=== PATIENT | male | born 1950 | race Caucasian/White ===

== ENCOUNTER 2017-10-20 10:36 | Observation (INO) | payer MEDICARE, MEDICAID ==
[2017-10-20] MEDS ORDERED: Sodium Chloride 0.9% 10 ML Syringe FLUSH PRN ×2 (11:33→18:19)
[2017-10-20] MEDS ORDERED: Ketorolac 30 MG/ML SDV IVPUSH ONE ×2 (11:35→11:36)
--- NOTE | 2017-10-20 11:41 | EDM.PDOCBH ---
ED HPI GENERAL MEDICAL PROBLEM - General Chief Complaint: Headache Stated Complaint: SEVERE HEADACHE Time Seen by Provider: 10/20/17 11:25 Source of Information: Reports: Provider History Limitations: Reports: Altered Mental Status - History of Present Illness INITIAL COMMENTS - FREE TEXT/NARRATIVE: Ha is a 66-year-old male, history schizophrenia, who presents to the emergency department today with his caregiver for evaluation of a headache. Patient planed of a headache upon waking today. His caregiver also noticed that his blood pressure was running low, typically runs around 110 systolic and today was as low as 89 systolic. Patient has been eating and drinking well per his caregiver. Patient does have issues with aspiration and has recently had a swallow study and she reports he frequent only coughs when he drinks any type of fluid. Patient has had no vomiting or diarrhea. Patient offers no other complaints. 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 Patient is unable to provide a significant history that is reliable. Per caregiver patient has not sustained any recent trauma. Onset: Today - Related Data Allergies Allergy/AdvReac Type Severity Reaction Status Date / Time Sulfa (Sulfonamide Allergy Cannot Verified 10/20/17 11:53 Antibiotics) Remember Home Meds: Home Meds Acetaminophen [Acetaminophen 8 Hour] 650 mg PO Q4H PRN 03/28/14 [History] Albuterol Sulfate 1 ampule IH Q4H PRN 03/28/14 [History] Aspirin [Halfprin] 81 mg PO QAM 03/28/14 [History] Atenolol 50 mg PO DAILY 03/28/14 [History] ClonazePAM [KlonoPIN] 1 mg PO QAM 03/28/14 [History] Dextrose [Glucose Gel] 15 g PO ASDIRECTED PRN 03/28/14 [History] Divalproex Sodium [Divalproex Sodium ER] 250 mg PO BID 03/28/14 [History] Divalproex Sodium [Divalproex Sodium ER] 500 mg PO BID 03/28/14 [History] Docusate Sodium/Sennosides [Senokot-S] 1 tab PO BID 03/28/14 [History] Furosemide [Lasix] 20 mg PO BID 03/28/14 [History] Glucagon,Human Recombinant [Glucagon Emergency Kit] 1 injection IM ASDIRECTED PRN 03/28/14 [History] Haloperidol 10 mg PO BID 03/28/14 [History] Haloperidol [Haldol] 5 mg PO Q6H PRN 03/28/14 [History] Ibuprofen 400 mg PO Q6H PRN 03/28/14 [History] Insulin NPH/Insulin Reg,Human [Novolin 70-30] 8 unit SQ QPM 03/28/14 [History] Insulin NPH/Insulin Reg,Human [Novolin 70-30] 16 unit SQ QAM 03/28/14 [History] Latanoprost [Xalatan 0.005% Ophth Soln] 1 drop EYEBOTH QPM 03/28/14 [History] Lisinopril 10 mg PO DAILY 03/28/14 [History] Mag Hydrox/Al Hydrox/Simeth [Maalox Maximum Strength Susp] 10 ml PO QID PRN [History] NIFEdipine [Procardia XL] 30 mg PO QAM 03/28/14 [History] QUEtiapine Fumarate [Quetiapine Fumarate] 800 mg PO QPM 03/28/14 [History] Simvastatin [Zocor] 5 mg PO BEDTIME 03/28/14 [History] diphenhydrAMINE HCl [Diphenhydramine HCl] 25 mg PO Q6H PRN 03/28/14 [History] metFORMIN HCl [Metformin HCl] 500 mg PO BID 03/28/14 [History] Clopidogrel Bisulfate [Clopidogrel] 1 tab PO DAILY 10/20/17 [History] Metoprolol Succinate [Toprol XL] 0.5 tab PO DAILY 10/20/17 [History] Past Medical History Neurological History: Reports: Headaches, Chronic, Neuropathy, Diabetic Endocrine/Metabolic History: Reports: Diabetes, Type II Social & Family History - Tobacco Use Smoking Status *Q: Never Smoker ED ROS GENERAL - Review of Systems Review Of Systems: ROS reveals no pertinent complaints other than HPI. ED EXAM, BEHAVIORAL HEALTH - Physical Exam Exam: See Below Exam Limited By: Other (Schizophrenia) General Appearance: Alert, WD/WN, No Apparent Distress Eye Exam: Bilateral Eye: EOMI, PERRL Ears: Normal External Exam, Normal TMs Nose: Normal Inspection Throat/Mouth: Normal Inspection, Normal Oropharynx Head: Atraumatic, Normocephalic Neck: Normal Inspection Respiratory/Chest: No Respiratory Distress, Rhonchi (Left lower lobe) Cardiovascular: Normal Peripheral Pulses, Regular Rate, Rhythm, No Murmur GI/Abdominal: Normal Bowel Sounds, Soft, Non-Tender Back Exam: Normal Inspection Extremities: Normal Inspection Neurological: Alert, Other (Patient has brace to right lower leg) Psychiatric: Alert, Flight of Ideas, Grandiose Thoughts Skin Exam: Warm, Dry, Intact COURSE, BEHAVIORAL HEALTH COMP - Course Vital Signs: Last Vital Signs Temp 35.1 C L 10/20/17 11:09 Pulse 88 10/20/17 11:09 Resp 16 10/20/17 11:09 BP 117/65 10/20/17 11:09 Pulse Ox 96 10/20/17 11:09 Ha is a 66-year-old male, history schizophrenia who presents to the emergency department today with his caregiver for concern of low blood pressure and patient complaint of headache since this morning. Please refer to history of present illness and focused exam. Patient does have rhonchi to left lower lobe on exam, concerns for aspiration pneumonia given his history. Given his low temperature here and low blood pressure reported this morning, I am concerned of possible sepsis. Patient is not tachycardic. At this time we'll give patient a liter of normal saline, 15 mg of Toradol for his headache that he is complaining of and obtain a CBC, comprehensive panel and lactic acid. I will also obtain a chest x-ray. Patient's x-ray is negative for any lobar pneumonia. CBC returns with a normal white count and normal neutrophil count. Patient's hemoglobin is stable at 11.1 , lymphocytes are low at 22. Comprehensive metabolic panel returns with a sodium of 125 consistent with hyponatremia. Chloride is mildly low at 89 and carbon dioxide is mildly elevated at 34. BUNs is also elevated at 31, creatinine is normal at 1.2 with GFR of greater than 60. Liver function tests are normal, lactic acid does return elevated at 3.2. It is likely patient's sodium is secondary to his Lasix. His diuretic in light of his elevated BUNs and low blood pressure today is probably causing dehydration and therefore an elevated lactic acid. Patient's blood pressure has been stable here, he has eaten lunch without difficulty. I'm going to rule out a urinary tract infection and recheck a lactic acid after his fluid bolus is completed. 1550-lactic acid returned elevated to 3.8. Patient's urine is negative for infection, patient denies any headache currently, he has no evidence of nuchal rigidity or meningismus symptoms. Patient thus far has had a liter and a half of normal saline. He has eaten lunch without difficulty and no complaints of heartburn. I will give patient a GI cocktail. I discussed his case with hospitalist, Dr. Rodriguez and who would like a CT scan of his head to rule out any acute intracranial findings. Patient and caregiver has been updated on plan of care and are agreeable. 1650-CT scan is negative for any acute abnormalities, we will admit patient, likely treat for possible aspiration pneumonia at this time and perhaps with further hydration a definitive infiltrate will be present on repeat x-ray. Caregiver was updated. Patient was admitted in stable condition. Orders, Labs, Meds: Active Orders 24 hr Category Date Time Status Peripheral IV Care [RC] . DIRECTED Care 10/20/17 11:33 Active Head wo Cont [CT] Stat Exams 10/20/17 15:39 Taken UA W/MICROSCOPIC [URIN] Stat Lab 10/20/17 13:10 Ordered Sodium Chloride 0.9% [Normal Saline] 1,000 ml Med 10/20/17 11:45 Active IV ASDIRECTED Sodium Chloride 0.9% [Normal Saline] 1,000 ml Med 10/20/17 13:15 Active IV ASDIRECTED Sodium Chloride 0.9% [Saline Flush] Med 10/20/17 11:33 Active 10 ml FLUSH ASDIRECTED PRN Peripheral IV Insertion Adult [OM.PC] Routine Oth 10/20/17 11:33 Ordered Medication Orders Sodium Chloride (Normal Saline) 1,000 mls @ 999 mls/hr IV ASDIRECTED ELKIN Last Admin: 10/20/17 12:17 Dose: 999 mls/hr Sodium Chloride (Normal Saline) 1,000 mls @ 500 mls/hr IV ASDIRECTED ELKIN Last Admin: 10/20/17 13:26 Dose: 500 mls/hr Sodium Chloride (Saline Flush) 10 ml FLUSH ASDIRECTED PRN PRN Reason: Keep Vein Open Last Admin: 10/20/17 12:16 Dose: 10 ml Laboratory Tests 10/20/17 10/20/17 10/20/17 Range/Units 11:42 11:42 11:42 WBC 6.8 (4.5-11.0) K/uL RBC 3.62 L (4.30-5.90) M/uL Hgb 11.1 L (12.0-15.0) g/dL Hct 32.9 L (40.0-54.0) % MCV 91 (80-98) fL MCH 31 (27-31) pg MCHC 34 (32-36) % Plt Count 202 (150-400) K/uL Neut % (Auto) 62 (36-66) % Lymph % (Auto) 22 L (24-44) % [place] % (Auto) 14 H (2-6) % Eos % (Auto) 3 (2-4) % Baso % (Auto) 0 (0-1) % Sodium 125 L (140-148) mmol/L Potassium 4.7 (3.6-5.2) mmol/L Chloride 89 L (100-108) mmol/L Carbon Dioxide 34 H (21-32) mmol/L Anion Gap 6.7 (5.0-14.0) mmol/L BUN 31 H (7-18) mg/dL Creatinine 1.2 (0.8-1.3) mg/dL Est Cr Clr Drug Dosing 54.88 mL/min Estimated GFR (MDRD) > 60 (>60) Glucose 156 H (74-106) mg/dL Lactic Acid 3.2 H (0.4-2.0) mmol/L Calcium 8.5 (8.5-10.1) mg/dL Total Bilirubin 0.3 (0.2-1.0) mg/dL AST 13 L (15-37) U/L ALT 12 (12-78) U/L Alkaline Phosphatase 66 (46-116) U/L Total Protein 6.4 (6.4-8.2) g/dL Albumin 2.5 L (3.4-5.0) g/dL Globulin 3.9 H (2.3-3.5) g/dL Albumin/Globulin Ratio 0.6 L (1.2-2.2) Urine Color Urine Appearance Urine pH (4.5-8.0) Ur Specific [place] (1.008-1.030) Urine Protein (NEGATIVE) mg/dL Urine Glucose (UA) (NEGATIVE) mg/dL Urine Ketones (NEGATIVE) mg/dL Urine Occult Blood (NEGATIVE) Urine Nitrite (NEGAITVE) Urine Bilirubin (NEGATIVE) Urine Urobilinogen (NORMAL) mg/dL Ur Leukocyte Esterase (NEGATIVE) Urine RBC (0-5) Urine WBC (0-5) Ur Epithelial Cells Amorphous Sediment Urine Bacteria Urine Mucus 10/20/17 10/20/17 Range/Units 13:10 14:15 WBC (4.5-11.0) K/uL RBC (4.30-5.90) M/uL Hgb (12.0-15.0) g/dL Hct (40.0-54.0) % MCV (80-98) fL MCH (27-31) pg MCHC (32-36) % Plt Count (150-400) K/uL Neut % (Auto) (36-66) % Lymph % (Auto) (24-44) % [place] % (Auto) (2-6) % Eos % (Auto) (2-4) % Baso % (Auto) (0-1) % Sodium (140-148) mmol/L Potassium (3.6-5.2) mmol/L Chloride (100-108) mmol/L Carbon Dioxide (21-32) mmol/L Anion Gap (5.0-14.0) mmol/L BUN (7-18) mg/dL Creatinine (0.8-1.3) mg/dL Est Cr Clr Drug Dosing mL/min Estimated GFR (MDRD) (>60) Glucose (74-106) mg/dL Lactic Acid 3.8 H (0.4-2.0) mmol/L Calcium (8.5-10.1) mg/dL Total Bilirubin (0.2-1.0) mg/dL AST (15-37) U/L ALT (12-78) U/L Alkaline Phosphatase (46-116) U/L Total Protein (6.4-8.2) g/dL Albumin (3.4-5.0) g/dL Globulin (2.3-3.5) g/dL Albumin/Globulin Ratio (1.2-2.2) Urine Color Yellow Urine Appearance Clear Urine pH 5.0 (4.5-8.0) Ur Specific [place] 1.015 (1.008-1.030) Urine Protein Negative (NEGATIVE) mg/dL Urine Glucose (UA) Normal (NEGATIVE) mg/dL Urine Ketones Negative (NEGATIVE) mg/dL Urine Occult Blood Negative (NEGATIVE) Urine Nitrite Negative (NEGAITVE) Urine Bilirubin Negative (NEGATIVE) Urine Urobilinogen 1 (NORMAL) mg/dL Ur Leukocyte Esterase Negative (NEGATIVE) Urine RBC Not seen (0-5) Urine WBC 0-5 (0-5) Ur Epithelial Cells Not seen Amorphous Sediment Rare Urine Bacteria Not seen Urine Mucus Not seen Medications Generic Name Dose Route Start Last Admin Trade Name Freq PRN Reason Stop Dose Admin Sodium Chloride 1,000 mls @ 999 mls/hr 10/20/17 11:45 10/20/17 12:17 Normal Saline IV 999 mls/hr ASDIRECTED ELKIN Administration Sodium Chloride 1,000 mls @ 500 mls/hr 10/20/17 13:15 10/20/17 13:26 Normal Saline IV 500 mls/hr ASDIRECTED ELKIN Administration Sodium Chloride 10 ml 10/20/17 11:33 10/20/17 12:16 Saline Flush FLUSH 10 ml ASDIRECTED PRN Administration Keep Vein Open Discontinued Medications Generic Name Dose Route Start Last Admin Trade Name Freq PRN Reason Stop Dose Admin Acetaminophen 1,000 mg 10/20/17 13:10 10/20/17 13:42 Tylenol Extra Strength PO 10/20/17 13:11 1,000 mg ONETIME ONE Administration Al Hydroxide/Mg Hydroxide 15 0 ml 10/20/17 15:44 10/20/17 16:15 ml/ Lidocaine HCl 15 ml PO 10/20/17 15:45 30 ml ONETIME ONE Administration Sodium Chloride 1,000 mls @ 999 mls/hr 10/20/17 13:00 Normal Saline IV ASDIRECTED [facility] Ketorolac Tromethamine 30 mg 10/20/17 11:35 10/20/17 12:18 Toradol IVPUSH 10/20/17 11:36 Not Given ONETIME ONE Ketorolac Tromethamine 15 mg 10/20/17 11:36 10/20/17 12:17 Toradol IVPUSH 10/20/17 11:37 15 mg ONETIME ONE Administration Departure - Departure Time of Disposition: 17:30 Disposition: Admitted As Inpatient 65 Condition: Good Clinical Impression: Elevated lactic acid level, Dehydration - Discharge Information Referrals: Renuka Young MD [Primary Care Provider] - Forms: ED Department Discharge - My Orders Last 24 Hours: My Active Orders 10/20/17 11:33 Peripheral IV Care [RC] . DIRECTED Sodium Chloride 0.9% [Saline Flush] 10 ml FLUSH ASDIRECTED PRN Peripheral IV Insertion Adult [OM.PC] Routine 10/20/17 11:45 Sodium Chloride 0.9% [Normal Saline] 1,000 ml IV ASDIRECTED 10/20/17 13:10 UA W/MICROSCOPIC [URIN] Stat 10/20/17 13:15 Sodium Chloride 0.9% [Normal Saline] 1,000 ml IV ASDIRECTED 10/20/17 15:39 Head wo Cont [CT] Stat - Assessment/Plan Last 24 Hours: My Active Orders 10/20/17 11:33 Peripheral IV Care [RC] . DIRECTED Sodium Chloride 0.9% [Saline Flush] 10 ml FLUSH ASDIRECTED PRN Peripheral IV Insertion Adult [OM.PC] Routine 10/20/17 11:45 Sodium Chloride 0.9% [Normal Saline] 1,000 ml IV ASDIRECTED 10/20/17 13:10 UA W/MICROSCOPIC [URIN] Stat 10/20/17 13:15 Sodium Chloride 0.9% [Normal Saline] 1,000 ml IV ASDIRECTED 10/20/17 15:39 Head wo Cont [CT] Stat
[2017-10-20] MEDS ORDERED: Sodium Chloride 0.9% 1,000 ML IV SCH ×3 (11:45→13:15)
--- NOTE | 2017-10-20 12:39 | CR ---
CHEST: 2 view CLINICAL HISTORY:Aspiration COMPARISON:2011 FINDINGS: There is less than optimal inspiration. The heart and pulmonary vascularity are normal. Th ere are atherosclerotic changes in the aorta. There is no infiltrate or effusion IMPRESSION: Less than optimal inspiration No acute cardiopulmonary process
[2017-10-20] MEDS ORDERED: Acetaminophen 500 MG Tab PO ONE (13:10)
[2017-10-20] MEDS ORDERED: Alum Hydrox/Mag Hydrox/Simeth 15 ML, Lidocaine 2% 15 ML PO ONE ×2 (15:44)
--- NOTE | 2017-10-20 17:21 | PCM.HP ---
H&P History of Present Illness - General Date of Service: 10/20/17 Admit Problem/Dx: Admission Diagnosis/Problem Admission Diagnosis/Problem Lactic acidosis Source of Information: Provider, RN Notes Reviewed History Limitations: Reports: Altered Mental Status (Dementia) - History of Present Illness Initial Comments - Free Text/Narative: This patient is a 66-year-old gentleman who is admitted to observation status for further evaluation of lactic acidosis. He has a history of chronic schizophrenia as well as underlying dementia and is unable to provide significant reliable information concerning recent symptoms or review of systems. Over the past few months is been noted to have difficulty with probable aspiration and is in the process of undergoing swallowing evaluation. This morning was found by nursing staff to be lethargic and hypotensive. He was brought into the emergency department for further evaluation. On assessment reported headache and also abdominal discomfort. Laboratory studies were obtained, white blood cell count is within normal range but he was found to have an elevated lactic acid level at 3.2. This was rechecked after he received a liter of fluid and actually gone up to 3.8. He is otherwise been hemodynamically stable and afebrile while in the emergency department. Examination is unremarkable, chest x-ray shows no obvious infiltrate, and urinalysis is clear. - Related Data Allergies/Adverse Reactions: Allergies Allergy/AdvReac Type Severity Reaction Status Date / Time Sulfa (Sulfonamide Allergy Cannot Verified 10/20/17 11:53 Antibiotics) Remember Home Medications: Home Meds Acetaminophen [Acetaminophen 8 Hour] 650 mg PO Q4H PRN 03/28/14 [History] Albuterol Sulfate 1 ampule IH Q4H PRN 03/28/14 [History] Aspirin [Halfprin] 81 mg PO QAM 03/28/14 [History] Atenolol 50 mg PO DAILY 03/28/14 [History] ClonazePAM [KlonoPIN] 1 mg PO QAM 03/28/14 [History] Dextrose [Glucose Gel] 15 g PO ASDIRECTED PRN 03/28/14 [History] Divalproex Sodium [Divalproex Sodium ER] 250 mg PO BID 03/28/14 [History] Divalproex Sodium [Divalproex Sodium ER] 500 mg PO BID 03/28/14 [History] Docusate Sodium/Sennosides [Senokot-S] 1 tab PO BID 03/28/14 [History] Furosemide [Lasix] 20 mg PO BID 03/28/14 [History] Glucagon,Human Recombinant [Glucagon Emergency Kit] 1 injection IM ASDIRECTED PRN 03/28/14 [History] Haloperidol 10 mg PO BID 03/28/14 [History] Haloperidol [Haldol] 5 mg PO Q6H PRN 03/28/14 [History] Ibuprofen 400 mg PO Q6H PRN 03/28/14 [History] Insulin NPH/Insulin Reg,Human [Novolin 70-30] 8 unit SQ QPM 03/28/14 [History] Insulin NPH/Insulin Reg,Human [Novolin 70-30] 16 unit SQ QAM 03/28/14 [History] Latanoprost [Xalatan 0.005% [facility] Soln] 1 drop EYEBOTH QPM 03/28/14 [History] Lisinopril 10 mg PO DAILY 03/28/14 [History] Mag Hydrox/Al Hydrox/Simeth [Maalox Maximum Strength Susp] 10 ml PO QID PRN [History] NIFEdipine [Procardia XL] 30 mg PO QAM 03/28/14 [History] QUEtiapine Fumarate [Quetiapine Fumarate] 800 mg PO QPM 03/28/14 [History] Simvastatin [Zocor] 5 mg PO BEDTIME 03/28/14 [History] diphenhydrAMINE HCl [Diphenhydramine HCl] 25 mg PO Q6H PRN 03/28/14 [History] metFORMIN HCl [Metformin HCl] 500 mg PO BID 03/28/14 [History] Clopidogrel Bisulfate [Clopidogrel] 1 tab PO DAILY 10/20/17 [History] Metoprolol Succinate [Toprol XL] 0.5 tab PO DAILY 10/20/17 [History] Past Medical History Neurological History: Reports: Headaches, Chronic, Neuropathy, Diabetic Endocrine/Metabolic History: Reports: Diabetes, Type II Social & Family History - Tobacco Use Smoking Status *Q: Never Smoker H&P Review of Systems - Review of Systems: Review Of Systems: Unable To Obtain General: Reports: ROS unobtainable (Dementia) Exam - Exam Exam: See Below - Vital Signs Vital Signs: Last Vital Signs Temp 95.1 F L 10/20/17 11:09 Pulse 87 10/20/17 17:05 Resp 16 10/20/17 17:05 BP 149/90 H 10/20/17 17:05 Pulse Ox 89 L 10/20/17 17:05 Weight: 175 lb - Exam Quality Assessment: DVT Prophylaxis General: Alert, Cooperative HEENT: Conjunctiva Clear, Hearing Intact, Mucosa Moist & [place], Normal Nasal Septum, Posterior Pharynx Clear, Pupils Equal Neck: Supple, Trachea Midline, +2 Carotid Pulse wo Bruit Lungs: Decreased Breath Sounds. No: Crackles, Rales, Rhonchi, Rub, Stridor Cardiovascular: Regular Rate, Regular Rhythm, Normal S1, Normal S2. No: Systolic Murmur, Diastolic Murmur GI/Abdominal Exam: Soft, Non-Tender, No Organomegaly, No Distention Back Exam: Normal Inspection, Full Range of Motion Extremities: Non-Tender, No Pedal Edema Skin: Warm, Dry, Intact Neurological: Cranial Nerves Intact, Strength Equal Bilateral, Normal Speech, Normal Tone, Sensation Intact. No: Focal Deficit Neuro Extensive - Mental Status: Alert, Disorientation to Place, Disorientation to Time, Memory Loss-Remote Events, Memory Loss-Recent Events. No: Normal Cognition, Memory Intact - Patient Data Lab Results Last 24 hrs: Laboratory Results - last 24 hr 10/20/17 10/20/17 10/20/17 Range/Units 11:42 11:42 11:42 WBC 6.8 (4.5-11.0) K/uL RBC 3.62 L (4.30-5.90) M/uL Hgb 11.1 L (12.0-15.0) g/dL Hct 32.9 L (40.0-54.0) % MCV 91 (80-98) fL MCH 31 (27-31) pg MCHC 34 (32-36) % Plt Count 202 (150-400) K/uL Neut % (Auto) 62 (36-66) % Lymph % (Auto) 22 L (24-44) % [place] % (Auto) 14 H (2-6) % Eos % (Auto) 3 (2-4) % Baso % (Auto) 0 (0-1) % Sodium 125 L (140-148) mmol/L Potassium 4.7 (3.6-5.2) mmol/L Chloride 89 L (100-108) mmol/L Carbon Dioxide 34 H (21-32) mmol/L Anion Gap 6.7 (5.0-14.0) mmol/L BUN 31 H (7-18) mg/dL Creatinine 1.2 (0.8-1.3) mg/dL Est Cr Clr Drug Dosing 54.88 mL/min Estimated GFR (MDRD) > 60 (>60) Glucose 156 H (74-106) mg/dL Lactic Acid 3.2 H (0.4-2.0) mmol/L Calcium 8.5 (8.5-10.1) mg/dL Total Bilirubin 0.3 (0.2-1.0) mg/dL AST 13 L (15-37) U/L ALT 12 (12-78) U/L Alkaline Phosphatase 66 (46-116) U/L Total Protein 6.4 (6.4-8.2) g/dL Albumin 2.5 L (3.4-5.0) g/dL Globulin 3.9 H (2.3-3.5) g/dL Albumin/Globulin Ratio 0.6 L (1.2-2.2) Urine Color Urine Appearance Urine pH (4.5-8.0) Ur Specific [place] (1.008-1.030) Urine Protein (NEGATIVE) mg/dL Urine Glucose (UA) (NEGATIVE) mg/dL Urine Ketones (NEGATIVE) mg/dL Urine Occult Blood (NEGATIVE) Urine Nitrite (NEGAITVE) Urine Bilirubin (NEGATIVE) Urine Urobilinogen (NORMAL) mg/dL Ur Leukocyte Esterase (NEGATIVE) Urine RBC (0-5) Urine WBC (0-5) Ur Epithelial Cells Amorphous Sediment Urine Bacteria Urine Mucus 10/20/17 10/20/17 Range/Units 13:10 14:15 WBC (4.5-11.0) K/uL RBC (4.30-5.90) M/uL Hgb (12.0-15.0) g/dL Hct (40.0-54.0) % MCV (80-98) fL MCH (27-31) pg MCHC (32-36) % Plt Count (150-400) K/uL Neut % (Auto) (36-66) % Lymph % (Auto) (24-44) % [place] % (Auto) (2-6) % Eos % (Auto) (2-4) % Baso % (Auto) (0-1) % Sodium (140-148) mmol/L Potassium (3.6-5.2) mmol/L Chloride (100-108) mmol/L Carbon Dioxide (21-32) mmol/L Anion Gap (5.0-14.0) mmol/L BUN (7-18) mg/dL Creatinine (0.8-1.3) mg/dL Est Cr Clr Drug Dosing mL/min Estimated GFR (MDRD) (>60) Glucose (74-106) mg/dL Lactic Acid 3.8 H (0.4-2.0) mmol/L Calcium (8.5-10.1) mg/dL Total Bilirubin (0.2-1.0) mg/dL AST (15-37) U/L ALT (12-78) U/L Alkaline Phosphatase (46-116) U/L Total Protein (6.4-8.2) g/dL Albumin (3.4-5.0) g/dL Globulin (2.3-3.5) g/dL Albumin/Globulin Ratio (1.2-2.2) Urine Color Yellow Urine Appearance Clear Urine pH 5.0 (4.5-8.0) Ur Specific [place] 1.015 (1.008-1.030) Urine Protein Negative (NEGATIVE) mg/dL Urine Glucose (UA) Normal (NEGATIVE) mg/dL Urine Ketones Negative (NEGATIVE) mg/dL Urine Occult Blood Negative (NEGATIVE) Urine Nitrite Negative (NEGAITVE) Urine Bilirubin Negative (NEGATIVE) Urine Urobilinogen 1 (NORMAL) mg/dL Ur Leukocyte Esterase Negative (NEGATIVE) Urine RBC Not seen (0-5) Urine WBC 0-5 (0-5) Ur Epithelial Cells Not seen Amorphous Sediment Rare Urine Bacteria Not seen Urine Mucus Not seen Result Diagrams: 10/20/17 11:42 10/20/17 11:42 *Q Meaningful Use (ADM) - VTE Risk Assess *Q Each Risk Factor Represents 1 Point: Obesity ( BMI > 25 kg/m2) Total Score 1 Point Risk Factors: 1 Each Risk Factor Represents 2 Points: Age 60 - 74 Years Total Score 2 Point Risk Factors: 2 Each Risk Factor Represents 3 Points: None Total Score 3 Point Risk Factors: 0 Each Risk Factor Represents 5 Points: None Total Score 5 Point Risk Factors: 0 Venous Thromboembolism Risk Factor Score *Q: 3 Problem List Initiated/Reviewed/Updated: Yes Orders Last 24hrs: Active Orders 24 hr Category Date Time Status Patient Status Manage Transfer [TRANSFER] Routine ADT 10/20/17 16:59 Ordered Peripheral IV Care [RC] . DIRECTED Care 10/20/17 11:33 Active Head wo Cont [CT] Stat Exams 10/20/17 15:39 Taken UA W/MICROSCOPIC [URIN] Stat Lab 10/20/17 13:10 Ordered Sodium Chloride 0.9% [Normal Saline] 1,000 ml Med 10/20/17 11:45 Active IV ASDIRECTED Sodium Chloride 0.9% [Normal Saline] 1,000 ml Med 10/20/17 13:15 Active IV ASDIRECTED Sodium Chloride 0.9% [Saline Flush] Med 10/20/17 11:33 Active 10 ml FLUSH ASDIRECTED PRN Peripheral IV Insertion Adult [OM.PC] Routine Oth 10/20/17 11:33 Ordered Resuscitation Status Routine Resus Stat 10/20/17 17:04 Ordered Medication Orders Sodium Chloride (Normal Saline) 1,000 mls @ 999 mls/hr IV ASDIRECTED ELKIN Last Admin: 10/20/17 12:17 Dose: 999 mls/hr Sodium Chloride (Normal Saline) 1,000 mls @ 500 mls/hr IV ASDIRECTED ELKIN Last Admin: 10/20/17 13:26 Dose: 500 mls/hr Sodium Chloride (Saline Flush) 10 ml FLUSH ASDIRECTED PRN PRN Reason: Keep Vein Open Last Admin: 10/20/17 12:16 Dose: 10 ml Assessment/Plan Comment:: ASSESSMENT AND PLAN LACTIC ACIDOSIS-likely secondary to dehydration and possible aspiration this morning. White blood cell count is normal and there is no evidence of significant infiltrate on chest x-ray. -IV fluids for hydration -Repeat lactic acid later tonight and again in a.m. -Hold metformin POSSIBLE ASPIRATION -Repeat chest x-ray in a.m. after hydration -Supplemental oxygen as needed -Nebulized albuterol as needed -Blood cultures -Unasyn 1.5 g IV every 6 hours, plan to discontinue in a.m. if no evidence of pulmonary infection identified CHRONIC SCHIZOPHRENIA-with underlying dementia -Continue outpatient medical regimen MAINTENANCE ISSUES -DVT prophylaxis; Lovenox 40 mg subcutaneous daily -GI prophylaxis; not indicated -Cartagena catheter; not indicated -Nutrition; pured diet, nectar thickened liquids -Nicotine dependence; not required CODE STATUS-DNR/DNI ADMISSION STATUS-this patient will be admitted to observation status, expect no more than a one night hospital stay for evaluation and management of problems as outlined above. DISPOSITION-anticipate discharge to home after the hospital stay. PRIMARY CARE PROVIDER-Dr. Young
[2017-10-20] MEDS ORDERED: Glucose Gel 15 GM in 37.5 GM Tube PO PRN (18:19)
[2017-10-20] MEDS ORDERED: Ondansetron 4 MG/2 ML SDV IV PRN (18:19)
[2017-10-20] MEDS ORDERED: Haloperidol 5 MG Tab PO PRN (18:19)
[2017-10-20] MEDS ORDERED: Lactated Ringers 1,000 ML IV SCH ×2 (18:19→21:15)
[2017-10-20] MEDS ORDERED: Albuterol 0.083% 2.5 MG/3 ML Neb Soln NEB PRN (18:19)
[2017-10-20] MEDS ORDERED: 50% Dextrose in Water 50 ML Syringe IV PRN (18:19)
[2017-10-20] MEDS ORDERED: Insulin NPH/Insulin Regular,Human 70-30 100 Units/ML 10 ML Vial SUBCUT SCH (18:19)
[2017-10-20] MEDS ORDERED: Magnesium Hydroxide 400 MG/5 ML Susp 30 ML Cup PO PRN (18:19)
[2017-10-20] MEDS ORDERED: Enoxaparin 40 MG/0.4 ML Syringe SUBCUT SCH (18:19)
[2017-10-20] MEDS ORDERED: Polyethylene Glycol 3350 Powder 17 GM Packet PO PRN (18:19)
[2017-10-20] MEDS ORDERED: QUEtiapine 100 MG Tab PO SCH (20:00)
[2017-10-20] MEDS ORDERED: Ampicillin/Sulbactam Na 3 GM Vial ONE (20:13)
[2017-10-20] MEDS ORDERED: Sodium Chloride 0.9% 100 ML ONE (20:15)
[2017-10-20] MEDS: Ampicillin/Sulbactam Na 1.5 GM in Sodium Chloride 0.9% 50 ML IV SCH (20:30)
[2017-10-20] MEDS ORDERED: QUEtiapine 100 MG Tab ONE (20:47)
[2017-10-20] MEDS ORDERED: [UNRECOGNIZED DRUG - OTHER] PO SCH (21:00)
[2017-10-20] MEDS ORDERED: Haloperidol 5 MG Tab PO SCH (21:00)
[2017-10-20] MEDS ORDERED: DIVALPROEX SODIUM 500 MG PO SCH (21:00)
[2017-10-20] MEDS ORDERED: Divalproex Sodium 250 MG Tab.ER PO SCH (21:00)
[2017-10-20] MEDS: Insulin Aspart 100 Units/ML 3 ML Pen SUBCUT SCH (21:54)
[2017-10-20] MEDS: Latanoprost 0.005% Ophth Soln 2.5 ML Bottle EYEBOTH SCH (22:20)
[2017-10-20] MEDS: Acetaminophen 325 MG Tab PO PRN (23:18)
[2017-10-21] MEDS: Ampicillin/Sulbactam Na 1.5 GM in Sodium Chloride 0.9% 50 ML IV SCH ×3 (01:28→13:54)
[2017-10-21] MEDS ORDERED: Lactated Ringers 1,000 ML IV SCH (04:00)
[2017-10-21] MEDS: Insulin Aspart 100 Units/ML 3 ML Pen SUBCUT SCH ×4 (08:00→21:03)
[2017-10-21] MEDS ORDERED: Insulin NPH/Insulin Regular,Human 70-30 100 Units/ML 10 ML Vial SUBCUT SCH (09:00)
[2017-10-21] MEDS ORDERED: Atenolol 50 MG Tab PO SCH (09:00)
--- NOTE | 2017-10-21 10:02 | PCM.PN ---
- General Info Date of Service: 10/21/17 Subjective Update: This patient has remained stable since yesterday, no significant temperature elevation. Follow-up chest x-ray after hydration shows no obvious infiltrate. He is unable to provide significant information concerning symptoms or review of systems because of underlying dementia. - Patient Data Vitals - Most Recent: Last Vital Signs Temp 96.6 F 10/21/17 09:53 Pulse 80 10/21/17 09:53 Resp 20 10/21/17 09:53 BP 172/74 H 10/21/17 09:53 Pulse Ox 99 10/21/17 09:53 Weight - Most Recent: 175 lb I&O - Last 24 Hours: Intake & Output 10/20/17 10/21/17 10/21/17 22:59 06:59 14:59 Intake Total 240 1710 Output Total 875 700 Balance -635 1010 Lab Results Last 24 Hours: Laboratory Results - last 24 hr 10/20/17 10/20/17 10/20/17 Range/Units 11:42 11:42 11:42 WBC 6.8 (4.5-11.0) K/uL RBC 3.62 L (4.30-5.90) M/uL Hgb 11.1 L (12.0-15.0) g/dL Hct 32.9 L (40.0-54.0) % MCV 91 (80-98) fL MCH 31 (27-31) pg MCHC 34 (32-36) % Plt Count 202 (150-400) K/uL Neut % (Auto) 62 (36-66) % Lymph % (Auto) 22 L (24-44) % Noble % (Auto) 14 H (2-6) % Eos % (Auto) 3 (2-4) % Baso % (Auto) 0 (0-1) % Sodium 125 L (140-148) mmol/L Potassium 4.7 (3.6-5.2) mmol/L Chloride 89 L (100-108) mmol/L Carbon Dioxide 34 H (21-32) mmol/L Anion Gap 6.7 (5.0-14.0) mmol/L BUN 31 H (7-18) mg/dL Creatinine 1.2 (0.8-1.3) mg/dL Est Cr Clr Drug Dosing 54.88 mL/min Estimated GFR (MDRD) > 60 (>60) Glucose 156 H (74-106) mg/dL Lactic Acid 3.2 H (0.4-2.0) mmol/L Calcium 8.5 (8.5-10.1) mg/dL Total Bilirubin 0.3 (0.2-1.0) mg/dL AST 13 L (15-37) U/L ALT 12 (12-78) U/L Alkaline Phosphatase 66 (46-116) U/L Total Protein 6.4 (6.4-8.2) g/dL Albumin 2.5 L (3.4-5.0) g/dL Globulin 3.9 H (2.3-3.5) g/dL Albumin/Globulin Ratio 0.6 L (1.2-2.2) Urine Color Urine Appearance Urine pH (4.5-8.0) Ur Specific [place] (1.008-1.030) Urine Protein (NEGATIVE) mg/dL Urine Glucose (UA) (NEGATIVE) mg/dL Urine Ketones (NEGATIVE) mg/dL Urine Occult Blood (NEGATIVE) Urine Nitrite (NEGAITVE) Urine Bilirubin (NEGATIVE) Urine Urobilinogen (NORMAL) mg/dL Ur Leukocyte Esterase (NEGATIVE) Urine RBC (0-5) Urine WBC (0-5) Ur Epithelial Cells Amorphous Sediment Urine Bacteria Urine Mucus 10/20/17 10/20/17 10/20/17 Range/Units 13:10 14:15 22:00 WBC (4.5-11.0) K/uL RBC (4.30-5.90) M/uL Hgb (12.0-15.0) g/dL Hct (40.0-54.0) % MCV (80-98) fL MCH (27-31) pg MCHC (32-36) % Plt Count (150-400) K/uL Neut % (Auto) (36-66) % Lymph % (Auto) (24-44) % Noble % (Auto) (2-6) % Eos % (Auto) (2-4) % Baso % (Auto) (0-1) % Sodium (140-148) mmol/L Potassium (3.6-5.2) mmol/L Chloride (100-108) mmol/L Carbon Dioxide (21-32) mmol/L Anion Gap (5.0-14.0) mmol/L BUN (7-18) mg/dL Creatinine (0.8-1.3) mg/dL Est Cr Clr Drug Dosing mL/min Estimated GFR (MDRD) (>60) Glucose (74-106) mg/dL Lactic Acid 3.8 H 2.4 H (0.4-2.0) mmol/L Calcium (8.5-10.1) mg/dL Total Bilirubin (0.2-1.0) mg/dL AST (15-37) U/L ALT (12-78) U/L Alkaline Phosphatase (46-116) U/L Total Protein (6.4-8.2) g/dL Albumin (3.4-5.0) g/dL Globulin (2.3-3.5) g/dL Albumin/Globulin Ratio (1.2-2.2) Urine Color Yellow Urine Appearance Clear Urine pH 5.0 (4.5-8.0) Ur Specific [place] 1.015 (1.008-1.030) Urine Protein Negative (NEGATIVE) mg/dL Urine Glucose (UA) Normal (NEGATIVE) mg/dL Urine Ketones Negative (NEGATIVE) mg/dL Urine Occult Blood Negative (NEGATIVE) Urine Nitrite Negative (NEGAITVE) Urine Bilirubin Negative (NEGATIVE) Urine Urobilinogen 1 (NORMAL) mg/dL Ur Leukocyte Esterase Negative (NEGATIVE) Urine RBC Not seen (0-5) Urine WBC 0-5 (0-5) Ur Epithelial Cells Not seen Amorphous Sediment Rare Urine Bacteria Not seen Urine Mucus Not seen 10/21/17 10/21/17 10/21/17 Range/Units 05:42 05:42 05:42 WBC 9.0 (4.5-11.0) K/uL RBC 3.72 L (4.30-5.90) M/uL Hgb 11.3 L (12.0-15.0) g/dL Hct 33.3 L (40.0-54.0) % MCV 90 (80-98) fL MCH 30 (27-31) pg MCHC 34 (32-36) % Plt Count 204 (150-400) K/uL Neut % (Auto) 64 (36-66) % Lymph % (Auto) 18 L (24-44) % Noble % (Auto) 17 H (2-6) % Eos % (Auto) 2 (2-4) % Baso % (Auto) 0 (0-1) % Sodium 130 L (140-148) mmol/L Potassium 4.4 (3.6-5.2) mmol/L Chloride 94 L (100-108) mmol/L Carbon Dioxide 30 (21-32) mmol/L Anion Gap 10.4 (5.0-14.0) mmol/L BUN 23 H (7-18) mg/dL Creatinine 0.9 (0.8-1.3) mg/dL Est Cr Clr Drug Dosing 73.17 mL/min Estimated GFR (MDRD) > 60 (>60) Glucose 72 L (74-106) mg/dL Lactic Acid 1.6 (0.4-2.0) mmol/L Calcium 8.3 L (8.5-10.1) mg/dL Total Bilirubin (0.2-1.0) mg/dL AST (15-37) U/L ALT (12-78) U/L Alkaline Phosphatase (46-116) U/L Total Protein (6.4-8.2) g/dL Albumin (3.4-5.0) g/dL Globulin (2.3-3.5) g/dL Albumin/Globulin Ratio (1.2-2.2) Urine Color Urine Appearance Urine pH (4.5-8.0) Ur Specific [place] (1.008-1.030) Urine Protein (NEGATIVE) mg/dL Urine Glucose (UA) (NEGATIVE) mg/dL Urine Ketones (NEGATIVE) mg/dL Urine Occult Blood (NEGATIVE) Urine Nitrite (NEGAITVE) Urine Bilirubin (NEGATIVE) Urine Urobilinogen (NORMAL) mg/dL Ur Leukocyte Esterase (NEGATIVE) Urine RBC (0-5) Urine WBC (0-5) Ur Epithelial Cells Amorphous Sediment Urine Bacteria Urine Mucus Med Orders - Current: Current Medications Acetaminophen (Tylenol) 650 mg PO Q4H PRN PRN Reason: Pain (Mild 1-3)/fever Last Admin: 10/20/17 23:18 Dose: 650 mg Albuterol (Proventil Neb Soln) 2.5 mg NEB Q4H PRN PRN Reason: Shortness Of Breath/wheezing Aspirin (Halfprin) 81 mg PO QAM [facility] Atenolol (Tenormin) 50 mg PO DAILY [facility] Clonazepam (Klonopin) 1 mg PO QAM [place] Clopidogrel Bisulfate (Plavix) 75 mg PO DAILY [facility] Dextrose (Glutose 15) 15 gm PO ONETIME PRN PRN Reason: Hypoglycemia Dextrose/Water (Dextrose 50% In Water) 50 ml IV ONETIME PRN PRN Reason: Hypoglycemia Divalproex Sodium (Depakote Er) 750 mg PO BID [facility] Last Admin: 10/20/17 21:11 Dose: 750 mg Enoxaparin Sodium (Lovenox) 40 mg SUBCUT BEDTIME [facility] Haloperidol (Haldol) 5 mg PO Q6H PRN PRN Reason: Agitation Last Admin: 10/21/17 01:25 Dose: 5 mg Haloperidol (Haldol) 10 mg PO BID [facility] Last Admin: 10/20/17 21:11 Dose: 10 mg Insulin Aspart (Novolog) 0 unit SUBCUT QIDACANDBED [facility]; Protocol Last Admin: 10/21/17 08:00 Dose: Not Given Insulin Human Isoph/Insulin Regular (Novolin 70-30) 8 unit SUBCUT QPM [facility] Last Admin: 10/20/17 21:58 Dose: 8 units Insulin Human Isoph/Insulin Regular (Novolin 70-30) 16 unit SUBCUT QAM [facility] Latanoprost (Xalatan 0.005% Oph Soln) 0 ml EYEBOTH QPM [facility] Last Admin: 10/20/17 22:20 Dose: 1 drop Lisinopril (Prinivil) 10 mg PO DAILY [facility] Magnesium Hydroxide (Milk Of Magnesia) 30 ml PO Q12H PRN PRN Reason: Constipation Metoprolol Succinate (Toprol Xl) 12.5 mg PO DAILY [facility] Nifedipine (Procardia Xl) 30 mg PO QAM [facility] Ondansetron HCl (Zofran) 4 mg IV Q4H PRN PRN Reason: Nausea/Vomiting Polyethylene Glycol (Miralax) 17 gm PO DAILY PRN PRN Reason: Constipation Quetiapine Fumarate (Seroquel) 600 mg PO QPM [facility] Last Admin: 10/20/17 21:10 Dose: Not Given Quetiapine Fumarate (Seroquel) 200 mg PO QPM [facility] Last Admin: 10/20/17 21:11 Dose: 200 mg Senna/Docusate Sodium (Senna Plus) 1 tab PO BID [facility] Last Admin: 10/20/17 21:12 Dose: 1 tab Simvastatin (Zocor) 5 mg PO BEDTIME [facility] Last Admin: 10/20/17 21:12 Dose: 5 mg Sodium Chloride (Saline Flush) 10 ml FLUSH ASDIRECTED PRN PRN Reason: Keep Vein Open Discontinued Medications Acetaminophen (Tylenol Extra Strength) 1,000 mg PO ONETIME ONE Stop: 10/20/17 13:11 Last Admin: 10/20/17 13:42 Dose: 1,000 mg Ampicillin Sodium/Sulbactam Sodium (Unasyn) Confirm Administered Dose 3 gm .ROUTE .STK-MED ONE Stop: 10/20/17 20:14 Last Admin: 10/20/17 20:32 Dose: Not Given Al Hydroxide/Mg Hydroxide 15 (ml/ Lidocaine HCl 15 ml) 0 ml PO ONETIME ONE Stop: 10/20/17 15:45 Last Admin: 10/20/17 16:15 Dose: 30 ml Enoxaparin Sodium (Lovenox) 40 mg SUBCUT DAILY [facility] Last Admin: 10/20/17 22:18 Dose: 40 mg Sodium Chloride (Normal Saline) 1,000 mls @ 999 mls/hr IV ASDIRECTED [facility] Last Admin: 10/20/17 12:17 Dose: 999 mls/hr Sodium Chloride (Normal Saline) 1,000 mls @ 999 mls/hr IV ASDIRECTED [place] Sodium Chloride (Normal Saline) 1,000 mls @ 500 mls/hr IV ASDIRECTED [facility] Last Admin: 10/20/17 13:26 Dose: 500 mls/hr Ampicillin Sodium/Sulbactam (Sodium 1.5 gm/ Sodium Chloride) 50 mls @ 100 mls/ hr IV Q6H [facility] Last Admin: 10/20/17 20:30 Dose: 100 mls/hr Lactated Ringer's (Ringers, Lactated) 1,000 mls @ 250 mls/hr IV ASDIRECTED [place] Stop: 10/20/17 22:20 Last Admin: 10/20/17 19:48 Dose: 250 mls/hr Lactated Ringer's (Ringers, Lactated) 1,000 mls @ 125 mls/hr IV ASDIRECTED [place] Sodium Chloride (Normal Saline) Confirm Administered Dose 100 mls @ as directed .ROUTE .STK-MED ONE Stop: 10/20/17 20:16 Last Admin: 10/20/17 22:42 Dose: Not Given Ampicillin Sodium/Sulbactam (Sodium 1.5 gm/ Sodium Chloride) 50 mls @ 100 mls/ hr IV Q6H [facility] Last Admin: 10/21/17 08:44 Dose: 100 mls/hr Lactated Ringer's (Ringers, Lactated) 1,000 mls @ 100 mls/hr IV ASDIRECTED [facility] Last Admin: 10/21/17 04:08 Dose: 100 mls/hr Ketorolac Tromethamine (Toradol) 30 mg IVPUSH ONETIME ONE Stop: 10/20/17 11:36 Last Admin: 10/20/17 12:18 Dose: Not Given Ketorolac Tromethamine (Toradol) 15 mg IVPUSH ONETIME ONE Stop: 10/20/17 11:37 Last Admin: 10/20/17 12:17 Dose: 15 mg Non-Formulary Medication (Divalproex Sodium [Divalproex Sodium Er]) 500 mg PO BID [facility] Quetiapine Fumarate (Seroquel) Confirm Administered Dose 600 mg .ROUTE .STK-MED ONE Stop: 10/20/17 20:48 Last Admin: 10/20/17 21:09 Dose: 600 mg Sodium Chloride (Saline Flush) 10 ml FLUSH ASDIRECTED PRN PRN Reason: Keep Vein Open Last Admin: 10/20/17 12:16 Dose: 10 ml - Exam General: Alert, Cooperative, No Acute Distress Lungs: Clear to Auscultation, Normal Respiratory Effort Cardiovascular: Regular Rate, Regular Rhythm, No Murmurs GI/Abdominal Exam: Soft, Non-Tender, No Organomegaly, No Distention Extremities: Non-Tender, No Pedal Edema Skin: Warm, Dry - Problem List Review Problem List Initiated/Reviewed/Updated: Yes - My Orders Last 24 Hours: My Active Orders 10/20/17 17:04 Resuscitation Status Routine 10/20/17 18:19 Patient Status [ADT] Routine Blood Glucose Check, Bedside [RC] QIDACANDBED Communication Order [RC] STAT Diabetes Education [RC] Click to Edit Height and Weight [RC] DAILY Intake and Output [RC] QSHIFT Notify Provider Vital Signs [RC] ASDIRECTED Notify Provider [RC] PRN Oxygen Therapy [RC] PRN Peripheral IV Care [RC] . DIRECTED RT Aerosol Therapy [RC] ASDIRECTED Up With Assistance [RC] ASDIRECTED Up to Chair [RC] QID Vital Signs [RC] Q4H Acetaminophen [Tylenol] 650 mg PO Q4H PRN Albuterol [Proventil Neb Soln] 2.5 mg NEB Q4H PRN Dextrose 50% in Water 50 ml IV ONETIME PRN Dextrose [Glutose 15] 15 gm PO ONETIME PRN Haloperidol [Haldol] 5 mg PO Q6H PRN Insulin NPH/Insulin Reg,Human [NovoLIN 70-30] 8 unit SUBCUT QPM Latanoprost [Xalatan 0.005% Ophth Soln] 0 ml EYEBOTH QPM Magnesium Hydroxide [Milk of Magnesia] 30 ml PO Q12H PRN Ondansetron [Zofran] 4 mg IV Q4H PRN Polyethylene Glycol 3350 [MiraLAX] 17 gm PO DAILY PRN Sodium Chloride 0.9% [Saline Flush] 10 ml FLUSH ASDIRECTED PRN Peripheral IV Insertion Adult [OM.PC] Routine 10/20/17 18:36 CULTURE BLOOD [BC] Routine 10/20/17 18:45 CULTURE BLOOD [BC] Stat 10/20/17 20:00 Insulin Aspart [NovoLOG] See Protocol SUBCUT QIDACANDBED QUEtiapine [SEROquel] 200 mg PO QPM QUEtiapine [SEROquel] 600 mg PO QPM 10/20/17 21:00 Divalproex Sodium [Depakote ER] 750 mg PO BID Docusate Sodium/Sennosides [Senna Plus] 1 tab PO BID Haloperidol [Haldol] 10 mg PO BID Simvastatin [Zocor] 5 mg PO BEDTIME 10/20/17 Dinner Pureed Diet [DIET] 10/21/17 05:11 Chest 2V [CR] AM 10/21/17 09:00 Aspirin [Halfprin] 81 mg PO QAM Atenolol [Tenormin] 50 mg PO DAILY ClonazePAM [KlonoPIN] 1 mg PO QAM Clopidogrel [Plavix] 75 mg PO DAILY Insulin NPH/Insulin Reg,Human [NovoLIN 70-30] 16 unit SUBCUT QAM Lisinopril [Prinivil] 10 mg PO DAILY Metoprolol Succinate [Toprol XL] 12.5 mg PO DAILY NIFEdipine [Procardia XL] 30 mg PO QAM 06/16/18 09:58 Convert IV to Saline Lock [OM.PC] Routine 10/21/17 21:00 Enoxaparin [Lovenox] 40 mg SUBCUT BEDTIME Melatonin 9 mg PO BEDTIME 10/22/17 07:30 GLUCOSE POC LAB TO COLLECT [POC] QIDACANDBED 10/22/17 11:30 GLUCOSE POC LAB TO COLLECT [POC] QIDACANDBED 10/22/17 16:30 GLUCOSE POC LAB TO COLLECT [POC] QIDACANDBED 10/22/17 21:00 GLUCOSE POC LAB TO COLLECT [POC] QIDACANDBED 10/23/17 07:30 GLUCOSE POC LAB TO COLLECT [POC] QIDACANDBED 10/23/17 11:30 GLUCOSE POC LAB TO COLLECT [POC] QIDACANDBED 10/23/17 16:30 GLUCOSE POC LAB TO COLLECT [POC] QIDACANDBED 10/23/17 21:00 GLUCOSE POC LAB TO COLLECT [POC] QIDACANDBED 10/24/17 07:30 GLUCOSE POC LAB TO COLLECT [POC] QIDACANDBED 10/24/17 11:30 GLUCOSE POC LAB TO COLLECT [POC] QIDACANDBED 10/24/17 16:30 GLUCOSE POC LAB TO COLLECT [POC] QIDACANDBED 10/24/17 21:00 GLUCOSE POC LAB TO COLLECT [POC] QIDACANDBED 10/25/17 07:30 GLUCOSE POC LAB TO COLLECT [POC] QIDACANDBED 10/25/17 11:30 GLUCOSE POC LAB TO COLLECT [POC] QIDACANDBED 10/25/17 16:30 GLUCOSE POC LAB TO COLLECT [POC] QIDACANDBED - Plan Plan:: ASSESSMENT AND PLAN LACTIC ACIDOSIS-likely secondary to dehydration, resolved after hydration -Saline lock IV -Hold metformin POSSIBLE ASPIRATION-he has remained afebrile and follow-up chest x-ray shows no obvious infiltrate after hydration -Pured diet, nectar thickened liquids -Discontinue antibiotic therapy -Supplemental oxygen as needed -Nebulized albuterol as needed -Blood cultures CHRONIC SCHIZOPHRENIA-with underlying dementia -Continue outpatient medical regimen MAINTENANCE ISSUES -DVT prophylaxis; Lovenox 40 mg subcutaneous daily -GI prophylaxis; not indicated -Cartagena catheter; not indicated -Nutrition; pured diet, nectar thickened liquids -Nicotine dependence; not required CODE STATUS-DNR/DNI ADMISSION STATUS-this patient will be admitted to observation status, expect no more than a one night hospital stay for evaluation and management of problems as outlined above. DISPOSITION-anticipate discharge back to shelter tomorrow PRIMARY CARE PROVIDER-Dr. Young
[2017-10-21] MEDS: ClonazePAM 1 MG Tab PO SCH (11:38)
[2017-10-21] MEDS: NIFEDIPINE 30 MG PO SCH (11:41)
[2017-10-21] MEDS: Metoprolol Succinate 25 MG Tab.ER (PTOM) PO SCH (11:41)
[2017-10-21] MEDS: Clopidogrel 75 MG Tab (PTOM) PO SCH (11:42)
[2017-10-21] MEDS: Aspirin 81 MG Tab.EC PO SCH (11:43)
[2017-10-21] MEDS: Lisinopril 10 MG Tab (PTOM) PO SCH (11:43)
[2017-10-21] MEDS: DIVALPROEX 500 MG PO SCH ×2 (11:51→21:17)
[2017-10-21] MEDS: HALOPERIDOL 10 MG PO SCH ×2 (11:53→21:18)
[2017-10-21] MEDS: DIVALPROEX SODIUM 250 MG PO SCH ×2 (11:53→21:12)
[2017-10-21] MEDS: Latanoprost 0.005% Ophth Soln 2.5 ML Bottle EYEBOTH SCH (17:43)
[2017-10-21] MEDS ORDERED: QUETIAPINE 400 MG PO SCH (21:00)
[2017-10-21] MEDS ORDERED: ClonazePAM 1 MG Tab PO SCH (21:00)
[2017-10-21] MEDS ORDERED: SIMVASTATIN 5 MG PO SCH (21:00)
[2017-10-21] MEDS ORDERED: Melatonin 3 MG Tab PO SCH (21:00)
[2017-10-21] MEDS ORDERED: LANTUS 100 UNIT/ML SUBCUT SCH (21:00)
[2017-10-21] MEDS ORDERED: Enoxaparin 40 MG/0.4 ML Syringe SUBCUT SCH (21:00)
[2017-10-22] MEDS: Acetaminophen 325 MG Tab PO PRN (00:27)
[2017-10-22] MEDS: Insulin Aspart 100 Units/ML 3 ML Pen SUBCUT SCH ×2 (07:15→11:48)
[2017-10-22] MEDS: DIVALPROEX SODIUM 250 MG PO SCH (08:37)
[2017-10-22] MEDS: Aspirin 81 MG Tab.EC PO SCH (08:38)
[2017-10-22] MEDS: Clopidogrel 75 MG Tab (PTOM) PO SCH (08:41)
[2017-10-22] MEDS: Lisinopril 10 MG Tab (PTOM) PO SCH (08:42)
[2017-10-22] MEDS: DIVALPROEX 500 MG PO SCH (08:43)
[2017-10-22] MEDS: HALOPERIDOL 10 MG PO SCH (08:43)
[2017-10-22] MEDS: NIFEDIPINE 30 MG PO SCH (08:43)
[2017-10-22] MEDS: Metoprolol Succinate 25 MG Tab.ER (PTOM) PO SCH (08:45)
[2017-10-22] MEDS: ClonazePAM 1 MG Tab PO SCH (08:45)
[2017-10-22] MEDS ORDERED: ISOSORBIDE MONO 30 MG PO SCH (09:00)
--- NOTE | 2017-10-22 10:48 | PCM.DCSUM1 ---
Discharge Summary - Hospital Course Brief History: This patient is a 66-year-old gentleman who is admitted through the emergency department with hypotension and lactic acidosis likely secondary to aspiration. Diagnosis: Stroke: No - Discharge Data Discharge Date: 10/22/17 Discharge Disposition: DC/Tfer to [facility] Ex [facility] Condition: Fair - Discharge Diagnosis/Problem(s) (1) Lactic acidosis SNOMED Code(s): 20803570 ICD Code: E87.2 - ACIDOSIS Status: Acute Current Visit: Yes (2) Aspiration into respiratory tract SNOMED Code(s): 002134945 ICD Code: T17.908A - UNSP FB IN RESP TRACT, PART UNSP CAUSING OTH INJURY, INIT Status: Acute Current Visit: Yes - Patient Summary/Data Hospital Course: This patient is a 66-year-old gentleman who was admitted to observation status for further evaluation of lactic acidosis. He has a history of chronic schizophrenia as well as underlying dementia and is unable to provide significant reliable information concerning recent symptoms or review of systems. Over the past few months he has been noted to have difficulty with probable aspiration and is in the process of undergoing swallowing evaluation. This morning was found by nursing staff to be lethargic and hypotensive. He was brought into the emergency department for further evaluation. On assessment reported headache and also abdominal discomfort. Laboratory studies were obtained, white blood cell count is within normal range but he was found to have an elevated lactic acid level at 3.2. This was rechecked after he received a liter of fluid and actually gone up to 3.8. He is otherwise been hemodynamically stable and afebrile while in the emergency department. Examination is unremarkable, chest x-ray shows no obvious infiltrate, and urinalysis is clear. On admission he was given IV fluids for hydration and serial lactic acid levels were obtained. By the following morning his lactic acidosis had resolved and he remained afebrile with a normal white blood cell count. IV fluids were discontinued and decision was made to monitor an additional day to make sure that he was stable prior to transfer back to the [facility]. On admission he was placed on a pured diet with nectar thickened liquids. He tolerated eating well during hospitalization with no further evidence of aspiration. Was felt likely that he aspirated on the morning of admission causing hypotension and lactic acidosis. A chest x-ray was obtained on the morning following admission after hydration and showed no obvious infiltrates, he was transiently treated with antibiotics up to this point but they were discontinued with no evidence of obvious infection. He remained stable over the next 24 hours of observation and will be discharged back to the [facility] today. Activity will be as tolerated and he will be on a strict pured nectar thickened liquid diet until his swallowing study has been completed. Further orders concerning diet pending results of swallowing study. Activity will be as tolerated and a follow-up appointment will be scheduled with his primary care provider within one week. - Patient Instructions Diet: Pureed Diet, Other: [place] thickened liquids Activity: As Tolerated Other/Special Instructions: Please schedule follow-up appointment with primary care provider within one week. Patient should be on a strict pured diet with nectar thickened liquids until his swallowing evaluation has been completed. - Discharge Plan Home Medications: Home Meds Acetaminophen [Acetaminophen 8 Hour] 650 mg PO Q4H PRN 03/28/14 [History] Albuterol Sulfate 1 ampule IH Q4H PRN 03/28/14 [History] Aspirin [Halfprin] 81 mg PO QAM 03/28/14 [History] ClonazePAM [KlonoPIN] 1 mg PO QAM 03/28/14 [History] Dextrose [Glucose Gel] 15 g PO ASDIRECTED PRN 03/28/14 [History] Divalproex Sodium [Divalproex Sodium ER] 250 mg PO BID 03/28/14 [History] Divalproex Sodium [Divalproex Sodium ER] 500 mg PO BID 03/28/14 [History] Docusate Sodium/Sennosides [Senokot-S] 1 tab PO BID 03/28/14 [History] Furosemide [Lasix] 20 mg PO BID 03/28/14 [History] Glucagon,Human Recombinant [Glucagon Emergency Kit] 1 injection IM ASDIRECTED PRN 03/28/14 [History] Haloperidol 10 mg PO BID 03/28/14 [History] Haloperidol [Haldol] 5 mg PO Q6H PRN 03/28/14 [History] Ibuprofen 400 mg PO Q6H PRN 03/28/14 [History] Latanoprost [Xalatan 0.005% Ophth Soln] 1 drop EYEBOTH QPM 03/28/14 [History] Lisinopril 10 mg PO DAILY 03/28/14 [History] Mag Hydrox/Al Hydrox/Simeth [Maalox Maximum Strength Susp] 10 ml PO QID PRN [History] NIFEdipine [Procardia XL] 30 mg PO QAM 03/28/14 [History] QUEtiapine Fumarate [Quetiapine Fumarate] 800 mg PO QPM 03/28/14 [History] Simvastatin [Zocor] 5 mg PO BEDTIME 03/28/14 [History] diphenhydrAMINE HCl [Diphenhydramine HCl] 25 mg PO Q6H PRN 03/28/14 [History] metFORMIN HCl [Metformin HCl] 1,000 mg PO BID 03/28/14 [History] Clopidogrel Bisulfate [Clopidogrel] 75 mg PO DAILY 10/20/17 [History] Metoprolol Succinate [Toprol XL] 12.5 mg PO DAILY 10/20/17 [History] Insulin Glarg,Human.Rec.Analog [Lantus Solostar] 15 units SQ BEDTIME 10/21/17 [ History] clonazePAM [Klonopin] 2 mg PO BEDTIME 10/21/17 [History] Referrals: Renuka Young MD [Primary Care Provider] - - Discharge Summary/Plan Comment DC Time >30 min.: No - Patient Data Vitals - Most Recent: Last Vital Signs Temp 96.8 F 10/22/17 07:22 Pulse 60 10/22/17 08:45 Resp 16 10/22/17 07:22 BP 160/84 H 10/22/17 08:45 Pulse Ox 96 10/22/17 07:22 Weight - Most Recent: 175 lb I&O - Last 24 hours: Intake & Output 10/21/17 10/22/17 10/22/17 22:59 06:59 14:59 Intake Total 520 240 Output Total 1200 300 Balance -680 -60 ALBINO Results - Last 24 hrs: Microbiology 10/20/17 18:45 Aerobic Blood Culture - Preliminary Blood - Arm, Right NO GROWTH AFTER 1 DAY Anaerobic Blood Culture - Preliminary NO GROWTH AFTER 1 DAY 10/20/17 18:36 Aerobic Blood Culture - Preliminary Blood - Venous NO GROWTH AFTER 1 DAY Anaerobic Blood Culture - Preliminary NO GROWTH AFTER 1 DAY Med Orders - Current: Current Medications Acetaminophen (Tylenol) 650 mg PO Q4H PRN PRN Reason: Pain (Mild 1-3)/fever Last Admin: 10/22/17 00:27 Dose: 650 mg Albuterol (Proventil Neb Soln) 2.5 mg NEB Q4H PRN PRN Reason: Shortness Of Breath/wheezing Aspirin (Halfprin) 81 mg PO QAM PENDING SALE TO [facility] Last Admin: 10/22/17 08:38 Dose: 81 mg Clonazepam (Klonopin) 1 mg PO QAM PENDING SALE TO [facility] Last Admin: 10/22/17 08:45 Dose: 1 mg Clonazepam (Klonopin) 2 mg PO BEDTIME PENDING SALE TO [facility] Last Admin: 10/21/17 21:28 Dose: 2 mg Clopidogrel Bisulfate (Plavix) 75 mg PO DAILY PENDING SALE TO [facility] Last Admin: 10/22/17 08:41 Dose: 75 mg Dextrose (Glutose 15) 15 gm PO ONETIME PRN PRN Reason: Hypoglycemia Dextrose/Water (Dextrose 50% In Water) 50 ml IV ONETIME PRN PRN Reason: Hypoglycemia Divalproex Sodium (Depakote Er) 250 mg PO BID PENDING SALE TO [facility] Last Admin: 10/22/17 08:37 Dose: 250 mg Enoxaparin Sodium (Lovenox) 40 mg SUBCUT BEDTIME PENDING SALE TO [facility] Last Admin: 10/21/17 21:05 Dose: 40 mg Haloperidol (Haldol) 5 mg PO Q6H PRN PRN Reason: Agitation Last Admin: 10/21/17 01:25 Dose: 5 mg Insulin Aspart (Novolog) 0 unit SUBCUT QIDACANDBED PENDING SALE TO [facility]; Protocol Last Admin: 10/22/17 07:15 Dose: Not Given Isosorbide Mononitrate (Imdur) 15 mg PO DAILY PENDING SALE TO [facility] Last Admin: 10/22/17 08:39 Dose: 15 mg Latanoprost (Xalatan 0.005% Ophth Soln) 0 ml EYEBOTH QPM PENDING SALE TO [facility] Last Admin: 10/21/17 17:43 Dose: 1 drop Lisinopril (Prinivil) 10 mg PO DAILY PENDING SALE TO [facility] Last Admin: 10/22/17 08:42 Dose: 10 mg Magnesium Hydroxide (Milk Of Magnesia) 30 ml PO Q12H PRN PRN Reason: Constipation Melatonin (Melatonin) 9 mg PO BEDTIME PENDING SALE TO [facility] Last Admin: 10/21/17 21:05 Dose: 9 mg Metoprolol Succinate (Toprol Xl) 12.5 mg PO DAILY PENDING SALE TO [facility] Last Admin: 10/22/17 08:45 Dose: 12.5 mg Nifedipine (Procardia Xl) 30 mg PO QAM PENDING SALE TO [facility] Last Admin: 10/22/17 08:43 Dose: 30 mg Ondansetron HCl (Zofran) 4 mg IV Q4H PRN PRN Reason: Nausea/Vomiting Haloperidol 10mg ( (Ptom)) 0 each PO BID PENDING SALE TO [facility] Last Admin: 10/22/17 08:43 Dose: 1 each Divalproex 500mg Er (Tab (Ptom)) 0 each PO BID PENDING SALE TO [facility] Last Admin: 10/22/17 08:43 Dose: 500 each Simvastatin 5mg Tab ((Ptom)) 0 each PO BEDTIME PENDING SALE TO [facility] Last Admin: 10/21/17 21:21 Dose: 1 each Quetiapine 400mg Tab ((Ptom)) 0 each PO BEDTIME PENDING SALE TO [facility] Last Admin: 10/21/17 21:26 Dose: 1 each Lantus 100 Units/Ml (Pen (Ptom)) 0 each SUBCUT BEDTIME PENDING SALE TO [facility] Last Admin: 10/21/17 21:25 Dose: 15 each Polyethylene Glycol (Miralax) 17 gm PO DAILY PRN PRN Reason: Constipation Senna/Docusate Sodium (Senna Plus) 1 tab PO BID PENDING SALE TO [facility] Last Admin: 10/22/17 08:45 Dose: 1 tab Sodium Chloride (Saline Flush) 10 ml FLUSH ASDIRECTED PRN PRN Reason: Keep Vein Open Discontinued Medications Acetaminophen (Tylenol Extra Strength) 1,000 mg PO ONETIME ONE Stop: 10/20/17 13:11 Last Admin: 10/20/17 13:42 Dose: 1,000 mg Ampicillin Sodium/Sulbactam Sodium (Unasyn) Confirm Administered Dose 3 gm .ROUTE .STK-MED ONE Stop: 10/20/17 20:14 Last Admin: 10/20/17 20:32 Dose: Not Given Atenolol (Tenormin) 50 mg PO DAILY PENDING SALE TO [facility] Last Admin: 10/21/17 11:44 Dose: 50 mg Al Hydroxide/Mg Hydroxide 15 (ml/ Lidocaine HCl 15 ml) 0 ml PO ONETIME ONE Stop: 10/20/17 15:45 Last Admin: 10/20/17 16:15 Dose: 30 ml Divalproex Sodium (Depakote Er) 750 mg PO BID PENDING SALE TO [facility] Last Admin: 10/20/17 21:11 Dose: 750 mg Enoxaparin Sodium (Lovenox) 40 mg SUBCUT DAILY PENDING SALE TO [facility] Last Admin: 10/20/17 22:18 Dose: 40 mg Haloperidol (Haldol) 10 mg PO BID PENDING SALE TO [facility] Last Admin: 10/20/17 21:11 Dose: 10 mg Sodium Chloride (Normal Saline) 1,000 mls @ 999 mls/hr IV ASDIRECTED PENDING SALE TO [facility] Last Admin: 10/20/17 12:17 Dose: 999 mls/hr Sodium Chloride (Normal Saline) 1,000 mls @ 999 mls/hr IV ASDIRECTED ELKIN Sodium Chloride (Normal Saline) 1,000 mls @ 500 mls/hr IV ASDIRECTED PENDING SALE TO [facility] Last Admin: 10/20/17 13:26 Dose: 500 mls/hr Ampicillin Sodium/Sulbactam (Sodium 1.5 gm/ Sodium Chloride) 50 mls @ 100 mls/ hr IV Q6H PENDING SALE TO [facility] Last Admin: 10/21/17 13:54 Dose: Not Given Lactated Ringer's (Ringers, Lactated) 1,000 mls @ 250 mls/hr IV ASDIRECTED PENDING SALE TO [facility] Stop: 10/20/17 22:20 Last Admin: 10/20/17 19:48 Dose: 250 mls/hr Lactated Ringer's (Ringers, Lactated) 1,000 mls @ 125 mls/hr IV ASDIRECTED PENDING SALE TO [facility] Sodium Chloride (Normal Saline) Confirm Administered Dose 100 mls @ as directed .ROUTE .STK-MED ONE Stop: 10/20/17 20:16 Last Admin: 10/20/17 22:42 Dose: Not Given Ampicillin Sodium/Sulbactam (Sodium 1.5 gm/ Sodium Chloride) 50 mls @ 100 mls/ hr IV Q6H PENDING SALE TO [facility] Last Admin: 10/21/17 08:44 Dose: 100 mls/hr Lactated Ringer's (Ringers, Lactated) 1,000 mls @ 100 mls/hr IV ASDIRECTED PENDING SALE TO [facility] Last Admin: 10/21/17 04:08 Dose: 100 mls/hr Insulin Human Isoph/Insulin Regular (Novolin 70-30) 8 unit SUBCUT QPM PENDING SALE TO [facility] Last Admin: 10/20/17 21:58 Dose: 8 units Insulin Human Isoph/Insulin Regular (Novolin 70-30) 16 unit SUBCUT QAM PENDING SALE TO [facility] Last Admin: 10/21/17 10:55 Dose: 16 units Ketorolac Tromethamine (Toradol) 30 mg IVPUSH ONETIME ONE Stop: 10/20/17 11:36 Last Admin: 10/20/17 12:18 Dose: Not Given Ketorolac Tromethamine (Toradol) 15 mg IVPUSH ONETIME ONE Stop: 10/20/17 11:37 Last Admin: 10/20/17 12:17 Dose: 15 mg Non-Formulary Medication (Divalproex Sodium [Divalproex Sodium Er]) 500 mg PO BID ELKIN Quetiapine Fumarate (Seroquel) 600 mg PO QPM PENDING SALE TO [facility] Last Admin: 10/20/17 21:10 Dose: Not Given Quetiapine Fumarate (Seroquel) 200 mg PO QPM PENDING SALE TO [facility] Last Admin: 10/20/17 21:11 Dose: 200 mg Quetiapine Fumarate (Seroquel) Confirm Administered Dose 600 mg .ROUTE .STK-MED ONE Stop: 10/20/17 20:48 Last Admin: 10/20/17 21:09 Dose: 600 mg Simvastatin (Zocor) 5 mg PO BEDTIME PENDING SALE TO [facility] Last Admin: 10/20/17 21:12 Dose: 5 mg Sodium Chloride (Saline Flush) 10 ml FLUSH ASDIRECTED PRN PRN Reason: Keep Vein Open Last Admin: 10/20/17 12:16 Dose: 10 ml - Exam General: Reports: Alert, Cooperative, No Acute Distress Lungs: Reports: Clear to Auscultation, Normal Respiratory Effort Cardiovascular: Reports: Regular Rate, Regular Rhythm, No Murmurs GI/Abdominal Exam: Soft, Non-Tender, No Organomegaly, No Distention Extremities: Non-Tender Skin: Reports: Warm, Dry
--- NOTE | 2017-10-23 08:52 | CR ---
CHEST: 2 view portable CLINICAL HISTORY:Follow-up after hydration COMPARISON:10/20/2017 FINDINGS: Heart size and pulmonary vascularity are normal. There is minimal patchy opacity in the le ft lower lobe. This may represent some atelectasis. There is less than optimal inspiration IMPRESSION: Left basilar air space disease is likely some patchy atelectasis
== END 2017-10-22 13:25 ==
LOC: JP.ED 10:36 → JP.ICU 16:59 → JP.MS 10-21 13:05
PROVIDERS: ADMIT Hospitalist; ATTEND Hospitalist
DX: E87.2 Acidosis (principal); I95.9 Hypotension, unspecified; E11.40 Type 2 diabetes mellitus with diabetic neuropathy, unspecified; F03.90 Unspecified dementia, unspecified severity, without behavioral disturbance, psychotic disturbance, mood disturbance, and anxiety; F20.89 Other schizophrenia; Z79.82 Long term (current) use of aspirin; Z79.4 Long term (current) use of insulin; Z79.899 Other long term (current) drug therapy; Z88.2 Allergy status to sulfonamides
CPT/HCPCS: 36415; 70450; 71046; 80048; 80053; 81001; 82962; 83605; 85025; 87040; 96361; 96366; 96372; 96375; 99285; A9270; G0378; J0287; J1650; J1885; J7030; J7050; J7120; 96374; 99217; 99219; 99225; 99284

== ENCOUNTER 2018-01-09 10:37 | Emergency (ER) | payer MEDICARE, MEDICAID ==
--- NOTE | 2018-01-09 11:32 | EDM.PDOC ---
ED HPI GENERAL MEDICAL PROBLEM - General Chief Complaint: Cardiovascular Problem Stated Complaint: LOW BLOOD PRESSURE Time Seen by Provider: 01/09/18 11:10 Source of Information: Reports: Patient, Provider History Limitations: Reports: No Limitations - History of Present Illness INITIAL COMMENTS - FREE TEXT/NARRATIVE: 67-year-old male lives in a long-term, on several psychiatric medications for schizophrenia was very lethargic this morning and hypotensive. It was prolonged and persistent so they felt he should be evaluated. They checked his glucose and it was 127. He was afebrile and his oxygen was normal. In route to the hospital he seemed to improve, and now appears to be back to his baseline. His blood pressure is 109/63, pulse is normal, O2 sats normal and is afebrile. He is delusional which is his normal baseline, he wants his blood sugar checked but nothing else. He is DNR/DNI. Onset: Unknown/Unsure Associated Symptoms: Reports: Confusion, Weakness. Denies: Fever/Chills, Loss of Appetite, Nausea/Vomiting, Shortness of Breath Denies Pain Score (Numeric/FACES): 0 - Related Data Allergies Allergy/AdvReac Type Severity Reaction Status Date / Time Sulfa (Sulfonamide Allergy Cannot Verified 01/09/18 11:00 Antibiotics) Remember Home Meds: Home Meds Acetaminophen [Acetaminophen 8 Hour] 650 mg PO Q4H PRN 03/28/14 [History] Albuterol Sulfate 1 ampule IH Q4H PRN 03/28/14 [History] Aspirin [Halfprin] 81 mg PO QAM 03/28/14 [History] ClonazePAM [KlonoPIN] 0.5 mg PO QAM 03/28/14 [History] Dextrose [Glucose Gel] 15 g PO ASDIRECTED PRN 03/28/14 [History] Divalproex Sodium [Divalproex Sodium ER] 250 mg PO BID 03/28/14 [History] Divalproex Sodium [Divalproex Sodium ER] 500 mg PO BID 03/28/14 [History] Docusate Sodium/Sennosides [Senokot-S] 1 tab PO BID 03/28/14 [History] Furosemide [Lasix] 20 mg PO DAILY 03/28/14 [History] Glucagon,Human Recombinant [Glucagon Emergency Kit] 1 injection IM ASDIRECTED PRN 03/28/14 [History] Haloperidol 10 mg PO BID 03/28/14 [History] Haloperidol [Haldol] 5 mg PO Q6H PRN 03/28/14 [History] Latanoprost [Xalatan 0.005% Ophth Soln] 1 drop EYEBOTH QPM 03/28/14 [History] Lisinopril 10 mg PO DAILY 03/28/14 [History] NIFEdipine [Procardia XL] 30 mg PO QAM 03/28/14 [History] QUEtiapine Fumarate [Quetiapine Fumarate] 800 mg PO QPM 03/28/14 [History] Simvastatin [Zocor] 5 mg PO BEDTIME 03/28/14 [History] diphenhydrAMINE HCl [Diphenhydramine HCl] 25 mg PO Q6H PRN 03/28/14 [History] metFORMIN HCl [Metformin HCl] 1,000 mg PO BID 03/28/14 [History] Clopidogrel Bisulfate [Clopidogrel] 75 mg PO DAILY 10/20/17 [History] Metoprolol Succinate [Toprol XL] 12.5 mg PO DAILY 10/20/17 [History] Insulin Glarg,Human.Rec.Analog [Lantus Solostar] 7 units SQ BEDTIME 10/21/17 [ History] clonazePAM [Klonopin] 2 mg PO BEDTIME 10/21/17 [History] Isosorbide Mononitrate [Imdur] 15 mg PO DAILY 01/09/18 [History] Past Medical History HEENT History: Reports: Cataract Cardiovascular History: Reports: Heart Failure, Hypertension Respiratory History: Reports: Sleep Apnea Gastrointestinal History: Reports: Chronic Constipation Musculoskeletal History: Reports: Amputation, Fracture, Other (See Below) Other Musculoskeletal History: toe amputations on L foot. right ankle fx with deformity Neurological History: Reports: Headaches, Chronic, Neuropathy, Diabetic Psychiatric History: Reports: Aggressive/Hostile Behaviors, Dementia, Mood Swings, Psychosis, Schizophrenia Endocrine/Metabolic History: Reports: Diabetes, Type II Hematologic History: Reports: Anemia - Infectious Disease History Infectious Disease History: Reports: None - Past Surgical History HEENT Surgical History: Reports: Cataract Surgery Cardiovascular Surgical History: Reports: None Social & Family History - Tobacco Use Smoking Status *Q: Never Smoker Second Hand Smoke Exposure: No - Caffeine Use Caffeine Use: Reports: Soda - Recreational Drug Use Recreational Drug Use: No ED ROS GENERAL - Review of Systems Review Of Systems: See Below Constitutional: Denies: Fever, Chills Respiratory: Denies: Shortness of Breath Cardiovascular: Denies: Chest Pain GI/Abdominal: Denies: Diarrhea, Nausea, Vomiting Neurological: Reports: Confusion. Denies: Headache Psychiatric: Reports: Other (Chronic delusions) ED EXAM, GENERAL - Physical Exam Exam: See Below Exam Limited By: No Limitations General Appearance: Alert, No Apparent Distress Head: Atraumatic Respiratory/Chest: No Respiratory Distress, Lungs Clear Cardiovascular: Regular Rate, Rhythm GI/Abdominal: Non-Tender Neurological: Alert Psychiatric: Normal Affect, Normal Mood Skin Exam: Warm, Dry Course - Vital Signs Last Recorded V/S: Last Vital Signs Temp 95.0 F L 01/09/18 11:09 Pulse 73 01/09/18 11:11 Resp 16 01/09/18 11:11 BP 109/63 01/09/18 11:11 Pulse Ox 96 01/09/18 11:11 - Re-Assessments/Exams Free Text/Narrative Re-Assessment/Exam: 01/09/18 11:30 Asked the patient if we could check a few blood tests, he said he just wanted his glucose checked. I explained to him that that was already checked and was normal but we wanted to check kidney function and some electrolytes and he did not want a blood test. He did have a physical just last month. I suspect that this was vasovagal, complicated by his extensive medication list. If symptoms tend to recur he can be rechecked or consult with his primary provider regarding his medications. Departure - Departure Time of Disposition: 11:47 Disposition: Home, Self-Care 01 Condition: Fair Clinical Impression: Hypotension Qualifiers: Hypotension type: idiopathic hypotension Qualified Code(s): I95.0 - Idiopathic hypotension Change in mental status Qualifiers: Altered mental status type: somnolence Qualified Code(s): R40.0 - Somnolence Instructions: Hypotension, [id number] Referrals: Renuka Young MD [Primary Care Provider] - Forms: ED Department Discharge Care Plan Goals: Continue current medications and activity, recheck if symptoms are recurring and persistent. Also recheck if shortness of breath or fever develop. Consider discussing medications with his primary provider to see if any adjustments are needed.
== END 2018-01-09 11:47 | disposition home or self-care (01) ==
LOC: JP.ED 10:37
DX: I95.0 Idiopathic hypotension (principal); I11.0 Hypertensive heart disease with heart failure; I50.9 Heart failure, unspecified; E11.9 Type 2 diabetes mellitus without complications; Z88.2 Allergy status to sulfonamides; Z79.899 Other long term (current) drug therapy; Z79.82 Long term (current) use of aspirin; Z79.84 Long term (current) use of oral hypoglycemic drugs
CPT/HCPCS: 99285

== ENCOUNTER 2022-02-04 12:56 | Emergency (ER) | payer MEDICARE, MEDICAID ==
[2022-02-04] MEDS: Benztropine 1 MG Tab PO ONE (13:47)
[2022-02-04 14:13] LABS: ESTIMATED GFR 80 mL/min (>60)
== END 2022-02-04 16:00 | disposition home or self-care (01) ==
LOC: JP.ED 12:56
DX: G40.909 Epilepsy, unspecified, not intractable, without status epilepticus (principal); G21.19 Other drug induced secondary parkinsonism; T50.905A Adverse effect of unspecified drugs, medicaments and biological substances, initial encounter; F20.0 Paranoid schizophrenia; D64.9 Anemia, unspecified; E86.0 Dehydration; R82.71 Bacteriuria; R82.81 Pyuria; I11.0 Hypertensive heart disease with heart failure; I50.9 Heart failure, unspecified; E11.40 Type 2 diabetes mellitus with diabetic neuropathy, unspecified; Z88.2 Allergy status to sulfonamides; Z79.4 Long term (current) use of insulin; Z79.82 Long term (current) use of aspirin; Z79.899 Other long term (current) drug therapy
CPT/HCPCS: 36415; 71045; 71045-26; 80053; 80164; 81001; 85025; 86140; 87086; 99284; A9270-GY

== ENCOUNTER 2024-03-15 10:15 | Observation (INO) | payer MEDICARE, MEDICAID ==
[2024-03-15 10:35] LABS: APPEARANCE,URINE CLEAR (CLEAR); BILIRUBIN,URINE NEGATIVE (NEGATIVE); COLOR,URINE YELLOW (YELLOW); GLUCOSE,URINE 100 mg/dL (NEGATIVE); KETONES,URINE NEGATIVE (NEGATIVE); LEUKOCYTE ESTERASE,URINE NEGATIVE (NEGATIVE); NITRITE,URINE NEGATIVE (NEGATIVE); OCCULT BLOOD,URINE TRACE-INTACT (NEGATIVE); PROTEIN,URINE 100 mg/dL (NEGATIVE); UROBILINOGEN,URINE 0.2 EU/dL (0.2-1.0)
[2024-03-15 10:42] LABS: AMORPHOUS SEDIMENT,URINE NOT SEEN; BACTERIA,URINE RARE; EPITHELIAL CELLS,URINE RARE; MUCUS,URINE NOT SEEN; RBC,URINE 0-5 (0-5); WBC,URINE 0-5 (0-5)
[2024-03-15 11:09] LABS: BASOPHILS PERCENT AUTO 0.3 % (0.1-1.3); EOSINOPHILS ABSOLUTE AUTO 0.09 K/uL (0.00-0.40); EOSINOPHILS PERCENT AUTO 1.1 % (0.0-5.4); HEMATOCRIT 35.1 % (38.4-49.7); HEMOGLOBIN 12.2 g/dL (12.9-16.9); IMMATURE GRAN ABSOLUTE AUTO 0.06 K/uL (0.00-0.23); IMMATURE GRAN PERCENT AUTO 0.8 % (0.0-0.7); LYMPHOCYTES ABSOLUTE AUTO 0.75 K/uL (0.8-3.3); LYMPHOCYTES PERCENT AUTO 9.5 % (11.4-47.7); MEAN CORPUSCULAR HEMOGLOBIN 31.9 pg (31.6-35.5); MEAN CORPUSCULAR HGB CONC 34.8 g/dL (31.6-35.5); MEAN CORPUSCULAR VOLUME 91.6 fL (81.4-99.0); MONOCYTES ABSOLUTE AUTO 0.72 K/uL (0.20-0.90); MONOCYTES PERCENT AUTO 9.1 % (3.3-12.6); NEUTROPHILS ABSOLUTE AUTO 6.29 K/uL (1.0-7.6); NEUTROPHILS PERCENT AUTO 79.2 % (40.0-78.1); PLATELET COUNT,PLT 193 K/uL (130-375); RED BLOOD CELL COUNT 3.83 M/uL (4.14-5.76); WHITE BLOOD CELL COUNT,WBC 7.9 K/uL (3.2-11.0)
[2024-03-15 11:12] LABS: BASOPHILS ABSOLUTE AUTO 0.02 K/uL (0.00-0.10)
[2024-03-15 11:31] LABS: A/G RATIO 0.8 (1.2-2.2); ALANINE AMINOTRANSFERASE,ALT 17 U/L (12-78); ALBUMIN 3.1 g/dL (3.4-5.0); ALKALINE PHOSPHATASE 70 U/L (46-116); ASPARTATE AMNIOTRANSFERASE,AST 17 U/L (15-37); BILIRUBIN TOTAL 0.4 mg/dL (0.2-1.0); BLOOD UREA NITROGEN,BUN 19 mg/dL (7-18); CALCIUM 9.2 mg/dL (8.5-10.1); CARBON DIOXIDE,CO2 30 mmol/L (21-32); CHLORIDE,CL 87 mmol/L (100-108); CREATININE 1.1 mg/dL (0.8-1.3); ESTIMATED GFR 70 mL/min (>60); GLUCOSE RANDOM 200 mg/dL (74-106); POTASSIUM,K 4.6 mmol/L (3.6-5.2); PROTEIN TOTAL,TP 7.1 g/dL (6.4-8.2); SODIUM,NA 126 mmol/L (140-148)
[2024-03-15 11:33] LABS: ANION GAP 13.6 mmol/L (5.0-14.0)
[2024-03-15] MEDS: OLANZapine 10 MG Vial IM ONE (11:34)
[2024-03-15] MEDS ORDERED: Magnesium Hydroxide 400 MG/5 ML Susp 30 ML Cup PO PRN ×2 (16:05→16:08)
[2024-03-15] MEDS ORDERED: Ondansetron 4 MG/2 ML SDV IV PRN ×2 (16:05→16:08)
[2024-03-15] MEDS ORDERED: Ondansetron 4 MG Tab.DIS PO PRN ×2 (16:05→16:08)
[2024-03-15] MEDS ORDERED: Sennosides/Docusate Sodium 50-8.6 MG Tab PO PRN ×2 (16:05→16:08)
[2024-03-15] MEDS ORDERED: LORazepam 2 MG/ML SDV IVPUSH PRN (16:08)
[2024-03-15] MEDS ORDERED: Acetaminophen 325 MG Tab PO PRN (16:08)
[2024-03-15] MEDS ORDERED: ALBUTEROL SULFATE 1.25 MG/3 ML IH PRN (16:11)
[2024-03-15] MEDS ORDERED: ACETAMINOPHEN 650 MG PO PRN (16:11)
[2024-03-15] MEDS ORDERED: Glucose Gel 15 GM in 37.5 GM Tube PO PRN (16:11)
[2024-03-15] MEDS: cefTRIAXone 1 GM in Sodium Chloride 0.9% 50 ML IV ONE (17:15)
[2024-03-15] MEDS: Insulin Lispro 100 Unit/ML 3 ML KwikPen SUBCUT SCH (17:48)
[2024-03-15] MEDS: Haloperidol 5 MG Tab PO PRN (18:18)
[2024-03-15] MEDS ORDERED: Sodium Chloride 0.9% 1,000 ML IV SCH (18:45)
[2024-03-15] MEDS: LATANOPROST 0.005% EYEBOTH SCH (19:34)
[2024-03-15] MEDS: LORazepam 2 MG/ML SDV IVPUSH PRN (19:40)
[2024-03-15] MEDS: HALOPERIDOL 10 MG PO SCH (20:44)
[2024-03-15] MEDS: ClonazePAM 0.5 MG Tab PO SCH (20:45)
[2024-03-15] MEDS: QUETIAPINE FUMARATE 400 MG PO SCH (20:45)
[2024-03-15] MEDS: Acetaminophen 325 MG Tab PO PRN (20:46)
[2024-03-15] MEDS: diphenhydrAMINE 25 MG Cap PO PRN (20:46)
[2024-03-15] MEDS: DIVALPROEX SODIUM 500 MG PO SCH (20:46)
[2024-03-15] MEDS ORDERED: Pravastatin 20 MG Tab PO SCH (21:00)
[2024-03-15] MEDS ORDERED: Haloperidol 5 MG Tab PO SCH (21:00)
[2024-03-15] MEDS ORDERED: HALOPERIDOL 10 MG PO SCH (21:00)
[2024-03-15] MEDS: metFORMIN 500 MG Tab PO SCH (22:30)
[2024-03-16 05:50] LABS: HEMATOCRIT 33.7 % (38.4-49.7); HEMOGLOBIN 11.7 g/dL (12.9-16.9); MEAN CORPUSCULAR HEMOGLOBIN 31.7 pg (31.6-35.5); MEAN CORPUSCULAR HGB CONC 34.7 g/dL (31.6-35.5); MEAN CORPUSCULAR VOLUME 91.3 fL (81.4-99.0); RED BLOOD CELL COUNT 3.69 M/uL (4.14-5.76)
[2024-03-16 06:09] LABS: A/G RATIO 0.8 (1.2-2.2); ALANINE AMINOTRANSFERASE,ALT 18 U/L (12-78); ALBUMIN 2.9 g/dL (3.4-5.0); ALKALINE PHOSPHATASE 65 U/L (46-116); ASPARTATE AMNIOTRANSFERASE,AST 21 U/L (15-37); BILIRUBIN TOTAL 0.4 mg/dL (0.2-1.0); BLOOD UREA NITROGEN,BUN 11 mg/dL (7-18); CALCIUM 8.9 mg/dL (8.5-10.1); CARBON DIOXIDE,CO2 31 mmol/L (21-32); CHLORIDE,CL 92 mmol/L (100-108); CREATININE 0.6 mg/dL (0.8-1.3); EST CRCL DRUG DOSING (CG) 90.44 mL/min; ESTIMATED GFR 101 mL/min (>60); GLUCOSE RANDOM 123 mg/dL (74-106); POTASSIUM,K 3.7 mmol/L (3.6-5.2); PROTEIN TOTAL,TP 6.6 g/dL (6.4-8.2); SODIUM,NA 129 mmol/L (140-148)
[2024-03-16 06:17] LABS: ANION GAP 9.7 mmol/L (5.0-14.0)
[2024-03-16] MEDS: Furosemide 20 MG **PTOM PO SCH (08:27)
[2024-03-16] MEDS: SITAGLIPTIN 50 MG PO SCH (08:27)
[2024-03-16] MEDS: Aspirin 81 MG Tab.EC PO SCH (08:29)
[2024-03-16] MEDS: ISOSORBIDE MONONITRATE 30 MG PO SCH (08:31)
[2024-03-16] MEDS: Metoprolol Succinate 25 MG **PTOM PO SCH (08:33)
[2024-03-16] MEDS: NIFEDIPINE 30 MG PO SCH (08:33)
[2024-03-16] MEDS: ClonazePAM 0.5 MG Tab PO SCH (08:37)
[2024-03-16] MEDS ORDERED: Saxagliptin 2.5 MG Tab PO SCH (09:00)
[2024-03-16] MEDS ORDERED: QUETIAPINE 400 MG PO SCH (21:00)
== END 2024-03-16 13:20 ==
LOC: JP.ED 10:15 → JP.ICU 15:15 → JP.MS 15:50
PROVIDERS: ADMIT Hospitalist; ATTEND Hospitalist
DX: R41.0 Disorientation, unspecified (principal); E87.1 Hypo-osmolality and hyponatremia; F20.0 Paranoid schizophrenia; I11.0 Hypertensive heart disease with heart failure; I50.9 Heart failure, unspecified; E11.9 Type 2 diabetes mellitus without complications; Z79.82 Long term (current) use of aspirin; Z79.84 Long term (current) use of oral hypoglycemic drugs; Z79.899 Other long term (current) drug therapy; E11.40 Type 2 diabetes mellitus with diabetic neuropathy, unspecified
CPT/HCPCS: 36415; 70450; 71045; 80053; 81001; 82947; 83605; 84145; 85025; 85027; 87040; 96372; 96374; 96375; 99285; A9270; C1758; G0378; J0696; J1815; J2060; J2359; J3490; 99223; 99238